=== PATIENT | female | born 1950 | race African-American/Black ===

== ENCOUNTER 2017-03-08 15:34 | Emergency (ER) | payer BC ==
[2017-03-08 13:56] LABS: BASOPHILS 0.1 %; BASOPHILS ABSOLUTE 0.01 10/3/uL (0.0-0.16); EOSINOPHILS 2.5 %; EOSINOPHILS ABSOLUTE 0.18 10/3/uL (0.0-0.53); HEMOGLOBIN 13.8 g/dL (12.0-16.0); IMMATURE GRANULOCYTES 0.1 %; IMMATURE GRANULOCYTES ABSOLUTE 0.01 10/3/uL (0.0-0.11); LYMPHOCYTES 16.9 %; LYMPHOCYTES ABSOLUTE 1.21 10/3/uL (0.67-4.30); MEAN CORPUS HGB CONC 32.9 g/dL (32.0-36.0); MEAN CORPUSCULAR HEMOGLOB 32.1 pg (26.0-34.0); MEAN CORPUSCULAR VOLUME 97.7 fL (80-100); MEAN PLATELET VOLUME 9.8 fL (9.2-13.0); MONOCYTES 8.7 %; MONOCYTES ABSOLUTE 0.62 10/3/uL (0.21-1.20); NEUTROPHILS 71.7 %; NEUTROPHILS ABSOLUTE 5.11 10/3/uL (2.02-8.40); PLATELET COUNT 249 10/3/uL (150-400); RBC DISTRIBUTION WIDTH 14.3 % (12.0-16.0); WHITE BLOOD CELLS 7.1 10/3/uL (4.5-10.5)
[2017-03-08 13:57] LABS: MANUAL DIFF NO %
[2017-03-08 14:14] LABS: A/G RATIO 0.9 (0.7-1.9); ALBUMIN 3.5 G/DL (3.5-5.0); ALKALINE PHOSPHATASE 101 U/L (45-117); BUN (BLOOD UREA NITROGEN) 16 MG/DL (6-23); CALCIUM, SERUM 9.1 MG/DL (8.5-10.4); CHLORIDE, SERUM 109 MMOL/L (96-112); CO2 (CARBON DIOXIDE) 28 MMOL/L (24-34); CREATININE 1.44 MG/DL (0.55-1.02); GFR AFRICAN AMERICAN 43 ML/MIN (>=60); GFR NON AFRICAN AMERICAN 37 ML/MIN (>=60); GLUCOSE, SERUM 100 MG/DL (60-99); POTASSIUM, SERUM 4.3 MMOL/L (3.5-5.3); SGOT(AST) 16 U/L (5-40); SGPT(ALT) 15 U/L (5-65); SODIUM, SERUM 143 MMOL/L (135-148); TOTAL BILIRUBIN 0.7 MG/DL (0-1.2); TOTAL PROTEIN 7.5 G/DL (6.0-8.5)
[2017-03-08 14:20] LABS: ASCORBIC ACID (UR NOT ORDER) NEG (NEG); BILIRUBIN, URINE NEGATIVE (NEG); KETONE, URINE NEGATIVE (NEG); LEUKOCYTE ESTERASE(NOT OR NEG (NEG); NITRITE (URINE) NEG (NEG); WBC (NOT ORDERED) (RFLEX) 3 (0-5)
[~2017-03-08 15:34] MED LIST: ALLEGRA180 PO; APRISO0.375 GM PO; CIP5 PO; COZ25; ELIQUIS 5 MG TAB5 MG PO; FLONASE NAS; ILA60 PO; LEVAQUIN750 MG; LEVOTHYROXIN125 MCG PO; METHIMAZOLE10 MG PO; MOBIC15 MG PO; NORCO1 TA1 PO; NORV10 PO; PR25 PO; PROAIR HFA INH; ROCALTROL0.5 MCG PO; SYMBICORT 160/41 INH INH; TUMSROLL PO
[2017-03-08] MEDS ORDERED: COZ25 PO (16:30)
[2017-03-08] MEDS ORDERED: SINGULAIR1 PO (16:30)
[2017-03-08] MEDS ORDERED: NORV10 PO (16:31)
[2017-03-08] MEDS ORDERED: PR25 PO (16:31)
[2017-03-08] MEDS ORDERED: PROAIR HFA INH (16:31)
[2017-03-08] MEDS ORDERED: ALLEGRA180 PO (16:31)
[2017-03-08] MEDS ORDERED: LEVOTHYROXIN137 MCG PO (16:31)
[2017-03-08] MEDS ORDERED: 8 HOUR650 MG PO (16:32)
[2017-03-08] MEDS ORDERED: TURMERIC CURCUMIN PO (16:32)
[2017-03-08] MEDS ORDERED: ELIQUIS 5 MG TAB5 MG PO (16:32)
[2017-03-08] MEDS ORDERED: ULTRAM50 PO (16:32)
== END 2017-03-08 17:49 | disposition home or self-care (01) ==
LOC: ER 15:34
PROVIDERS: Nurse Practitioner
DX: N13.2 Hydronephrosis with renal and ureteral calculous obstruction (principal); I10 Essential (primary) hypertension; Z79.899 Other long term (current) drug therapy
CPT/HCPCS: 74176; 80053; 81001; 83690; 85025; 96372; 96374; 96375; 99284; A9270-GY; J1170; J2405